=== PATIENT | female | born 1990 | race Caucasian/White ===

== ENCOUNTER 2017-10-19 17:43 | Emergency (ER) | payer SELFPAY ==
[~2017-10-19] VITALS: Ht 154.9 cm; Wt 63.5 kg
[2017-10-19 17:53] VITALS: Ht 154.9 cm; Wt 63.5 kg
[2017-10-19 20:55] LABS: UA SPECIFIC GRAVITY >=1.030 (1.005-1.035); microscopic required? YES; urine erythrocyte 3+ (NEGATIVE)
[2017-10-19 21:26] LABS: BASOPHIL % 0.3 % (0-2); PLATELET COUNT 241 x10^3mcL (130-400); RED CELL DISTRIBUTION WIDTH 13.4 % (11.5-14.5)
[2017-10-19 23:17] VITALS: BP 107/69
== END 2017-10-19 23:17 | disposition home or self-care (01) ==
LOC: ED 17:43
PROVIDERS: Emergency Medicine
DX: O20.0 Threatened abortion (principal); Z3A.00 Weeks of gestation of pregnancy not specified
CPT/HCPCS: 36415

== ENCOUNTER 2017-10-20 12:12 | Emergency (ER) | payer SELFPAY ==
[~2017-10-20] VITALS: Ht 154.9 cm; Wt 61.7 kg
[2017-10-20 12:14] VITALS: Ht 154.9 cm; Wt 61.7 kg
[2017-10-20 14:36] VITALS: BP 135/62
== END 2017-10-20 14:36 | disposition home or self-care (01) ==
LOC: ED 12:12
DX: Z00.01 Encounter for general adult medical examination with abnormal findings (principal)

== ENCOUNTER 2017-11-02 12:38 | Emergency (ER) | payer SELFPAY ==
[~2017-11-02] VITALS: Ht 154.9 cm; Wt 64.0 kg
[2017-11-02 13:11] VITALS: Ht 154.9 cm; Wt 64.0 kg
[2017-11-02 14:32] LABS: microscopic required? YES; urine erythrocyte 3+ (NEGATIVE)
[2017-11-02 15:59] VITALS: BP 112/74
[2017-11-02 16:06] LABS: BASOPHIL % 0.3 % (0-2); PLATELET COUNT 206 x10^3mcL (130-400); RED CELL DISTRIBUTION WIDTH 13.3 % (11.5-14.5)
== END 2017-11-02 16:57 | disposition home or self-care (01) ==
LOC: ED 12:38
PROVIDERS: Emergency Medicine
DX: O20.0 Threatened abortion (principal)
CPT/HCPCS: 36415

== ENCOUNTER 2017-11-12 15:08 | Emergency (ER) | payer SELFPAY ==
[~2017-11-12] VITALS: Ht 154.9 cm; Wt 65.0 kg
[2017-11-12 15:27] VITALS: Ht 154.9 cm; Wt 65.0 kg
[2017-11-12 17:19] LABS: microscopic required? YES; urine erythrocyte TRACE (NEGATIVE)
[2017-11-12 17:42] LABS: BASOPHIL % 0.3 % (0-2); PLATELET COUNT 239 x10^3mcL (130-400); RED CELL DISTRIBUTION WIDTH 13.2 % (11.5-14.5)
[2017-11-12 20:45] VITALS: BP 139/77
== END 2017-11-12 21:20 | disposition home or self-care (01) ==
LOC: ED 15:08
PROVIDERS: Student in an Organized Health Care Education/Training Program
DX: O03.9 Complete or unspecified spontaneous abortion without complication (principal)
CPT/HCPCS: 36415

== ENCOUNTER 2019-12-20 20:41 | Emergency (ER) | payer OTHER ==
[2019-12-20 20:45] VITALS: Ht 154.9 cm
[2019-12-20 21:43] VITALS: BP 117/81
== END 2019-12-20 21:43 | disposition home or self-care (01) ==
LOC: ED 20:41
DX: S60.022A Contusion of left index finger without damage to nail, initial encounter (principal); W22.8XXA Striking against or struck by other objects, initial encounter; Y93.89 Activity, other specified; Y92.89 Other specified places as the place of occurrence of the external cause; Y99.8 Other external cause status

== ENCOUNTER 2020-01-09 09:57 | Emergency (ER) | payer OTHER, SELFPAY ==
[~2020-01-09] VITALS: Ht 154.9 cm; Wt 66.7 kg
[2020-01-09 09:58] VITALS: Ht 154.9 cm; Wt 66.7 kg
[2020-01-09 12:55] VITALS: BP 98/68
== END 2020-01-09 12:55 | disposition home or self-care (01) ==
LOC: ED 09:57
DX: J18.9 Pneumonia, unspecified organism (principal); Z20.828 Contact with and (suspected) exposure to other viral communicable diseases
CPT/HCPCS: U0003